=== PATIENT | female | born 1995 | race Caucasian/White ===

== ENCOUNTER 2020-10-08 05:06 | Emergency (ER) | payer OTHER, SELFPAY ==
[2020-10-08 05:26] VITALS: BP 122/86; PULSE 103; RESP 18; TEMP 36.9; O2SAT 95; BMI 37.5
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
[2020-10-08 05:54] VITALS: BP 122/86; PULSE 103; RESP 18; TEMP 36.9; O2SAT 95
[2020-10-08 06:56] LABS: Amphetamine Screen Urine Not Detected (Not Detect); Barbiturates, Urine Not Detected (Not Detect); Benzodiazepines Screen Urine POSITIVE (Not Detect); Cannabinoid Screen Urine POSITIVE (Not Detect); Cocaine Screen Urine POSITIVE (Not Detect); Opiate Screen Urine Not Detected (Not Detect); Phencyclidine Screen Urine POSITIVE (Not Detect)
--- NOTE | 2020-10-08 07:11 | PC.NURSE ---
Report received from IVA Barragan. Pt resting, resp unlabored.
[2020-10-08 08:00] VITALS: RESP 16
--- NOTE | 2020-10-08 08:31 | PC.NURSE ---
Pt resting, resp unlabored
[2020-10-08 10:00] VITALS: RESP 18
--- NOTE | 2020-10-08 10:09 | PC.NURSE ---
Pt awakened, notified of plan to discharge. Pt in agreement w/ discharge, stating that she never said she was suicidal and has been wanting to leave. Offered pt resources re: senior care but pt declined.
--- NOTE | 2020-10-08 10:39 | PC.NURSE ---
Pt awake, alert, given discharge instructions. Pt tearful, upset at staying in the ED, stated many times she was not suicidal, angry that she was kept here. Pt reports she has a hx suicidal thoughts, but states she is safe to be discharged today, denies SI. Pt plans to go to her 'kam's. today' Pt declining any other assistance offered at this time. CARE team in, arranged pt transport to her family's. Pt aware that she can come back at any point if needed.
--- NOTE | 2020-10-08 10:56 | MHC.CARE ---
CARE Team provided Pt with cab voucher for discharge.
== END 2020-10-08 10:53 | disposition home or self-care (01) ==
PROVIDERS: Emergency Provider Internal Medicine
DX: F31.9 Bipolar disorder, unspecified (principal); R45.851 Suicidal ideations; F43.10 Post-traumatic stress disorder, unspecified; F41.1 Generalized anxiety disorder; F43.0 Acute stress reaction; Z79.899 Other long term (current) drug therapy
CPT/HCPCS: 80307; 99284

== ENCOUNTER 2020-11-29 21:36 | Emergency (ER) | payer OTHER, SELFPAY | END 2020-11-29 23:08 | disposition left against medical advice (07) | PROVIDERS: Emergency Provider Emergency Medicine | DX: Z20.822 Contact with and (suspected) exposure to COVID-19 (principal) ==

== ENCOUNTER 2024-01-19 22:00 | Emergency (ER) | payer MEDICAID, SELFPAY ==
--- NOTE | ~2024-01-19 | US_ITS ---
EXAMINATION: US OBSTETRICAL ULTRASOUND CLINICAL INFORMATION: patient with pelvic pain. COMPARISON: None available. LMP: 11/27/2023. Gestational age by maternal dates is 7 weeks and 5 days Estimated date of delivery by maternal dates is 09/02/2024. TECHNIQUE: Transabdominal obstetrical ultrasound performed. FINDINGS: There is a single intrauterine gestational sac with visible yolk sac, embryo/fetus, and cardiac activity. There is no significant subchorionic hemorrhage or hematoma. HR: 156 beats per minute. CRL (crown rump length): 0.88 cm (7 weeks and 0 days +/- 4 days). JUVE (estimated date of delivery): 09/07/2024 +/- 4 days. MATERNAL ADNEXA: The right maternal ovary measures 2.6 x 1.5 x 2.3 cm. The left maternal ovary measures 3.6 x 2.1 x 2.8 cm. There is no significant maternal adnexal mass. No maternal pelvic ascites. US/US OB <= 14 weeks fetus IMPRESSION: 1. Single intrauterine gestation with ultrasound gestational age of 7 weeks and 0 days +/- 4 days. 2. Estimated date of delivery is 09/07/2024 +/- 4 days. 3. No maternal adnexal mass or pelvic ascites.
--- NOTE | ~2024-01-19 | US_ITS ---
EXAMINATION: US ABDOMEN LIMITED CLINICAL INFORMATION: Right upper quadrant pain.. COMPARISON: None available. TECHNIQUE: Real-time limited imaging of the right upper quadrant abdominal viscera. FINDINGS: PANCREAS: Not assessed. LIVER: The visualized liver is normal in appearance. GALLBLADDER: Normal. The gallbladder is physiologically distended without evidence of stones, sludge, polyps, wall thickening or pericholecystic fluid. COMMON BILE DUCT: Normal in caliber measuring 0.26 cm in diameter. RIGHT KIDNEY: Not assessed. FREE FLUID: None. US/US abdomen limited IMPRESSION: No evidence of acute cholecystitis.
[2024-01-19 22:10] VITALS: BP 129/84; PULSE 87; RESP 18; TEMP 36; O2SAT 100; BMI 36.6
--- NOTE | 2024-01-19 22:32 | MHC.EDTECH ---
Patient brought into triage area,labs,sars/flu/rsv,and urine obtained and sent t lab.
[2024-01-19 22:37] LABS: MANUAL DIFF FLAG NO
[2024-01-19 22:40] LABS: Basophils Percent Auto 0.5 % (0-2); Eosinophils Absolute Auto 0.3 X10*3/uL (0.0-0.4); Eosinophils Percent Auto 4.5 % (0-4); Hematocrit 35.7 % (37.0-47.0); Hemoglobin 11.9 g/dl (12.0-16.0); Imm Gran Abs Auto 0.02 X10*3/uL (0.00-0.03); Imm Gran Pct Auto 0.3 % (0.0-0.4); Lymphocytes Absolute Auto 1.7 X10*3/uL (1.2-4.9); Lymphocytes Percent Auto 29.4 % (20-40); Mean Corpuscular HGB Conc 33.3 g/dl (31.0-35.0); Mean Corpuscular Hemoglobin 28.8 pg (27.0-33.0); Mean Corpuscular Volume 86.4 fL (80.0-98.0); Mean Platelet Volume 11.7 fL (9.4-12.3); Monocytes Absolute Auto 0.5 X10*3/uL (0.1-1.2); Monocytes Percent Auto 7.8 % (2-11); Neutrophils Absolute Auto 3.3 x10*3/uL (2.0-8.3); Neutrophils Percent Auto 57.5 % (45-73); Platelet Count 175 X10*3/uL (160-400); Red Blood Count 4.13 X10*6/uL (4.20-5.50); Red Cell Distribution Width 13.8 % (11.0-16.0); UPreg QC Valid YES; Urine Pregnancy POSITIVE (NEGATIVE); White Blood Count 5.7 X10*3/uL (4.8-10.8)
[2024-01-19 22:40] LABS: Appearance Urine Clear; Color Urine Yellow; Glucose Urine UA Negative (Negative); Leukocyte Esterase Urine Small (1+) (Negative); Nitrite Urine Negative (Negative); PH 6.5 (5.0-9.0); Specific Gravity - Urine 1.025 (1.005-1.025); UMIC TRIGGER UACC YES; Urine Blood Negative (Negative); Urine Ketones Negative (Negative); Urine Protein Negative (Neg-Trace)
[2024-01-19 22:44] LABS: Bacteria Urine 1+ (None Seen); Hyaline Casts Urine 0-2 /LPF (0-2); RBC Urine 0-2 /HPF (0-2); UACC Culture Trigger YES
[2024-01-19 23:02] LABS: Alanine Aminotransferase 159 U/L (0-31); Albumin Level 4.1 g/dL (3.5-5.0); Alkaline Phosphatase 125 U/L (39-117); Anion Gap 12 (12-20); Aspartate Amino Transferase 192 U/L (5-31); Bilirubin Total 0.3 mg/dL (0.0-1.0); Blood Urea Nitrogen 7 mg/dL (9-16); Calcium 9.5 mg/dL (8.4-10.2); Carbon Dioxide 26 mmol/L (22-29); Chloride 103 mmol/L (96-108); Creatinine Clr Calc Pharmacy 156.6; Estimated Glomerular Filt Rate > 60; Glucose Random 81 mg/dL (60-115); Lipase 8 U/L (8-78); Potassium 3.9 mmol/L (3.3-5.1); Sodium 137 mmol/L (135-145)
[2024-01-19 23:18] LABS: Influenza A PCR NEGATIVE (Negative); Influenza B PCR NEGATIVE (Negative); Resp Syncy Virus RNA Qual PCR NEGATIVE (Negative); SARS COV2 PCR INHOUSE NEGATIVE (Negative)
--- NOTE | 2024-01-20 01:41 | ED_ITS ---
HPI - Abdominal Pain General Chief Complaint: Abdominal Pain Stated Complaint: Abdominal pain Time Seen by Provider: 01/20/24 01:39 Source: patient Mode of arrival: ambulatory Limitations: no limitations History of Present Illness HPI narrative: Patient is about 7 weeks complaining of pain in pelvic area for last 2 days also complaining of pain in right upper quadrant off and on for last few days got worse today does not have any history of gallstones or kidney stone patient's plan for MTP on 01/20 no vaginal bleed patient does have history ovarian cyst does have nausea and vomiting for last 2 months Related Data Previous Rx's ?Medication ?Instructions ?Recorded ondansetron 4 mg disintegrating 4 mg PO Q6-8H PRN nausea and 01/20/24 tablet vomiting #14 tabs Allergies Allergy/AdvReac Type Severity Reaction Status Date / Time hydrocodone [HYDROCODONE] Allergy Unknown TINGLING Verified 01/19/24 22:14 OF LIPS AND MOUTH ketorolac [From TORADOL] AdvReac Unknown HIVES Verified 01/19/24 22:14 Review of Systems Review of Systems Yes all other systems are reviewed and are negative [facility] Social History Social History Advance Directives: No Advance Directives Information Provided: No Physical Exam ED Vital Signs: Vital Signs - 24 hr 01/19/24 22:10 01/20/24 01:53 Temperature 96.8 F 97.8 F Pulse Rate 87 92 Respiratory Rate 18 16 Blood Pressure 129/84 124/83 Pulse Oximetry 100 100 Oxygen Delivery Method Room Air Room Air BMI result Body Mass Index 36.6 Appearance: Alert. Oriented X3. No acute distress. Eyes: PERRLA, No Nystagmus no icterus ENT: Pharynx normal. Oral Mucosa moist Neck: Normal inspection. Neck supple. CVS: Normal heart rate and rhythm. Pulses normal. Respiratory: No respiratory distress. Equal air entry bilateral, no wheezing/rales/rhonchi Abdomen: Soft and tender right upper quadrant and epigastric area Bowel sounds are present, no mass palpable, no CVA tenderness mild tenderness suprapubic area Skin: Skin warm and dry. Normal skin color. Normal skin turgor. Extremities: No lower extremity edema. No calf tenderness Neuro: Oriented X 3. Medical Decision Making Medical Decision Making MDM Narrative: Patient is 7 weeks with abdominal pain ultrasound negative for gallstones IUP in place 7 weeks no adnexal mass patient advised to follow with ObG labs are stable Differential Diagnosis Differential Diagnoses: The differential diagnosis associated with the presentation includes Acute cholecystitis/cholelithiasis/ectopic /ovarian cyst/UTI Lab Data MDM Lab Attestation statement: I reviewed the patient's lab results. 01/19/24 22:29 01/19/24 22:29 Labs: Lab Results 01/19/24 01/19/24 Range/Units 22:21 22:29 WBC 5.7 (4.8-10.8) X10*3/uL RBC 4.13 L (4.20-5.50) X10*6/uL Hgb 11.9 L (12.0-16.0) g/dl Hct 35.7 L (37.0-47.0) % MCV 86.4 (80.0-98.0) fL MCH 28.8 (27.0-33.0) pg MCHC 33.3 (31.0-35.0) g/dl RDW 13.8 (11.0-16.0) % Plt Count 175 (160-400) X10*3/uL MPV 11.7 (9.4-12.3) fL Immature Gran % (Auto) 0.3 (0.0-0.4) % Neut % (Auto) 57.5 (45-73) % Lymph % (Auto) 29.4 (20-40) % [place] % (Auto) 7.8 (2-11) % Eos % (Auto) 4.5 H (0-4) % Baso % (Auto) 0.5 (0-2) % Lymph # (Auto) 1.7 (1.2-4.9) X10*3/uL [place] # (Auto) 0.5 (0.1-1.2) X10*3/uL Eos # (Auto) 0.3 (0.0-0.4) X10*3/uL Baso # (Auto) 0.0 (0.0-0.2) X10*3/uL Abs Immat Gran (auto) 0.02 (0.00-0.03) X10*3/uL Absolute Neuts (auto) 3.3 (2.0-8.3) x10*3/uL Absolute Nucleated RBC 0.000 (0.0-0.012) X10*3/uL Nucleated RBC % (auto) 0.0 (0.0-0.2) /100WBC Sodium 137 (135-145) mmol/L Potassium 3.9 (3.3-5.1) mmol/L Chloride 103 (96-108) mmol/L Carbon Dioxide 26 (22-29) mmol/L Anion Gap 12 (12-20) BUN 7 L (9-16) mg/dL Creatinine 0.62 (0.5-1.4) mg/dL Estim Creat Clear Calc 156.6 Estimated GFR > 60 Random Glucose 81 (60-115) mg/dL Calcium 9.5 (8.4-10.2) mg/dL Total Bilirubin 0.3 (0.0-1.0) mg/dL AST 192 H (5-31) U/L ALT 159 H (0-31) U/L Alkaline Phosphatase 125 H (39-117) U/L Total Protein 7.0 (6.5-8.0) g/dL Albumin 4.1 (3.5-5.0) g/dL Lipase 8 (8-78) U/L Beta HCG, Quant 60230 mIU/mL Urine Color Yellow Urine Appearance Clear Urine pH 6.5 (5.0-9.0) Ur Specific [place] 1.025 (1.005-1.025) Urine Protein Negative (Neg-Trace) mg/dL Urine Glucose (UA) Negative (Negative) mg/dL Urine Ketones Negative (Negative) mg/dL Urine Blood Negative (Negative) Urine Nitrite Negative (Negative) Ur Leukocyte Esterase Small (1+) H (Negative) Urine RBC 0-2 (0-2) /HPF Urine WBC 6-10 H (0-5) /HPF Ur Squamous Epith Cells 6-10 (0-2) /HPF Urine Bacteria 1+ (None Seen) Hyaline Casts 0-2 (0-2) /LPF Urine Test POSITIVE H (NEGATIVE) Influenza Type A (PCR) NEGATIVE (Negative) Influenza Type B (PCR) NEGATIVE (Negative) RSV RNA Qual (PCR) NEGATIVE (Negative) SARS-CoV-2 RNA (RT-PCR) NEGATIVE (Negative) Independent Interpretation I performed an independent interpretation of an: Ultrasound Radiology Impression Discussion of test interpretation with radiology: I have reviewed the radiologist's reading. Radiologist Impression: [address] [address] Ultrasound Report Signed Patient: Kristen Gallo MR#: [id number] : 1995 Acct:[id number] Age/Sex: 28 / F ADM Date: 01/19/24 Loc: HO.ED Attending Dr: Ordering Physician: Tom Parham MD Date of Service: 01/20/24 Procedure(s): US OB <= 14 weeks fetus Accession Number(s): [id number] cc: Physician,None ; Tom Parham MD~ EXAMINATION: US OBSTETRICAL ULTRASOUND CLINICAL INFORMATION: patient with pelvic pain. COMPARISON: None available. LMP: 11/27/2023. Gestational age by maternal dates is 7 weeks and 5 days Estimated date of delivery by maternal dates is 09/02/2024. TECHNIQUE: Transabdominal obstetrical ultrasound performed. FINDINGS: There is a single intrauterine gestational sac with visible yolk sac, embryo/fetus, and cardiac activity. There is no significant subchorionic hemorrhage or hematoma. HR: 156 beats per minute. CRL (crown rump length): 0.88 cm (7 weeks and 0 days +/- 4 days). JUVE (estimated date of delivery): 09/07/2024 +/- 4 days. MATERNAL ADNEXA: The right maternal ovary measures 2.6 x 1.5 x 2.3 cm. The left maternal ovary measures 3.6 x 2.1 x 2.8 cm. There is no significant maternal adnexal mass. No maternal pelvic ascites. US/US OB <= 14 weeks fetus IMPRESSION: 1. Single intrauterine gestation with ultrasound gestational age of 7 weeks and 0 days +/- 4 days. 2. Estimated date of delivery is 09/07/2024 +/- 4 days. 3. No maternal adnexal mass or pelvic ascites. [address] [address] Ultrasound Report Signed Patient: Kristen Gallo MR#: [id number] : 1995 Acct:[id number] Age/Sex: 28 / F ADM Date: 01/19/24 Loc: HO.ED Attending Dr: Ordering Physician: Tom Parham MD Date of Service: 01/20/24 Procedure(s): US abdomen limited Accession Number(s): [id number] cc: Physician,None ; Tom Parham MD~ EXAMINATION: US ABDOMEN LIMITED CLINICAL INFORMATION: Right upper quadrant pain.. COMPARISON: None available. TECHNIQUE: Real-time limited imaging of the right upper quadrant abdominal viscera. FINDINGS: PANCREAS: Not assessed. LIVER: The visualized liver is normal in appearance. GALLBLADDER: Normal. The gallbladder is physiologically distended without evidence of stones, sludge, polyps, wall thickening or pericholecystic fluid. COMMON BILE DUCT: Normal in caliber measuring 0.26 cm in diameter. RIGHT KIDNEY: Not assessed. FREE FLUID: None. US/US abdomen limited IMPRESSION: No evidence of acute cholecystitis. Medications Administered Discontinued Medications Generic Name Dose Route Start Last Admin Trade Name Freq PRN Reason Stop Dose Admin Sodium Chloride 1,000 mls @ 999 mls/hr 01/20/24 01:50 01/20/24 03:37 Ns IV 01/20/24 02:50 999 mls/hr .Q1H1M ONE Administration Morphine Sulfate 4 mg 01/20/24 01:50 01/20/24 03:36 Morphine Sulfate 4 Mg/Ml Cartridge IVPUSH 01/20/24 01:51 4 mg ONCE ONE Administration Protocol Ondansetron HCl 4 mg 01/20/24 01:50 01/20/24 03:36 Ondansetron Hcl 4 Mg/2 Ml Vial IVPUSH 01/20/24 01:51 4 mg ONCE ONE Administration Discharge Plan Discharge Clinical Impression: Abdominal pain, Patient Disposition: Home, Self-Care Instructions: Abdominal Pain in (ED), at 7 to 10 Weeks (ED) Additional Instructions: Your ultrasound is negative for gallstones ultrasound showed 7 weeks Follow-up with your OBG Drink plenty of fluids Medicine for nausea as prescribed Prescriptions: New ondansetron 4 mg tablet,disintegrating 4 mg PO Q6-8H PRN (Reason: nausea and vomiting) Qty: 14 0RF Print Language: Northern Irish
[2024-01-20 01:53] VITALS: BP 124/83; PULSE 92; RESP 16; TEMP 36.6; O2SAT 100
[2024-01-20] MEDS: Morphine Sulfate 4 MG/ML CARTRIDGE IVPUSH (03:36)
[2024-01-20] MEDS: ondansetron HCL 4 MG/2 ML VIAL IVPUSH (03:36)
[2024-01-20] MEDS: 0.9 % Sodium Chloride 1,000 ML 999 ML IV (03:37)
[2024-01-20 04:52] VITALS: BP 121/71; PULSE 83; RESP 16; TEMP 36.1; O2SAT 100
[2024-01-20 05:17] VITALS: BP 121/71; PULSE 83; RESP 16; TEMP 36.1; O2SAT 100
== END 2024-01-20 05:20 | disposition home or self-care (01) ==
PROVIDERS: Emergency Provider Internal Medicine
DX: O26.91 Pregnancy related conditions, unspecified, first trimester (principal); R10.11 Right upper quadrant pain; R10.2 Pelvic and perineal pain; Z3A.01 Less than 8 weeks gestation of pregnancy; Z11.52 Encounter for screening for COVID-19; Z20.822 Contact with and (suspected) exposure to COVID-19; Z79.899 Other long term (current) drug therapy
CPT/HCPCS: 0241U; 76705; 76801; 80053; 81001; 81025; 83690; 84702; 85025; 87086; 96374; 96375; 99284; J2270; J2405

== ENCOUNTER 2024-06-21 21:04 | Emergency (ER) | payer MEDICAID, SELFPAY ==
--- NOTE | 2024-06-21 21:05 | ECG_ITS ---
Test Reason : weakness Blood Pressure : / mmHG Vent. Rate : 088 BPM Atrial Rate : 088 BPM P-R Int : 172 ms QRS Dur : 092 ms QT Int : 372 ms P-R-T Axes : 058 016 033 degrees QTc Int : 450 ms Sinus rhythm with sinus arrhythmia with occasional Premature ventricular complexes Otherwise normal ECG When compared with ECG of 24-JUN-2016 05:25, Premature ventricular complexes are now Present Referred By: Generic ED Physician Electronically Signed By:BRYANNA STINSON
[2024-06-21 21:09] VITALS: BP 126/85; PULSE 91; RESP 18; TEMP 36.5; O2SAT 97; BMI 38.3
[2024-06-21 21:59] VITALS: BP 129/82; PULSE 82; RESP 16; TEMP 36.6; O2SAT 100
[2024-06-21 22:20] LABS: Troponin-I High Sensitivity < 2.7 ng/L (<3.5-17.0)
[2024-06-21 22:22] LABS: B Type Natriuretic Peptide 25 pg/mL (<100)
[2024-06-21 22:36] LABS: Influenza A PCR NEGATIVE (Negative); Influenza B PCR NEGATIVE (Negative); Resp Syncy Virus RNA Qual PCR NEGATIVE (Negative); SARS COV2 PCR INHOUSE NEGATIVE (Negative)
--- NOTE | 2024-06-21 23:21 | ED.CHESTPAIN ---
HPI - Chest Pain General Chief Complaint: Chest Pain Stated Complaint: chest pain-legs/feet swollen Time Seen by Provider: 06/21/24 23:15 Source: patient Mode of arrival: ambulatory Limitations: no limitations History of Present Illness ED Provider: bart RODRIGUES narrative: Patient with history of anxiety complaining of bilateral leg swelling for several days especially in the evening time patient usually stands on her feet all the time during daytime and noticed increased swelling in the evening times no shortness a breath no liver problem Related Data Previous Rx's ?Medication ?Instructions ?Recorded ondansetron 4 mg disintegrating 4 mg PO Q6-8H PRN nausea and 01/20/24 tablet vomiting #14 tabs amoxicillin 875 mg-potassium 1 tab PO BID #20 tabs 06/22/24 clavulanate 125 mg tablet hydrochlorothiazide 50 mg tablet 50 mg PO QAM #30 tabs 06/22/24 prednisone 20 mg tablet 40 mg (2 x 20 mg) PO DAILY #10 tabs 06/22/24 Allergies Allergy/AdvReac Type Severity Reaction Status Date / Time hydrocodone [HYDROCODONE] Allergy Unknown TINGLING Verified 06/21/24 21:10 OF LIPS AND MOUTH ketorolac [From TORADOL] AdvReac Unknown HIVES Verified 06/21/24 21:10 Review of Systems Review of Systems: Yes all other systems are reviewed and are negative [facility] Social History Social History Smoked in Last 30 Days: No Use of substances other than those prescribed or required for medical reasons: No Advance Directives: No Advance Directives Information Provided: No Do you have a plan to hurt others: No Plan Patient : No Physical Exam Vital Signs: Vital Signs: Last Vital Signs Temp 97.9 F 06/22/24 01:25 Pulse 82 06/22/24 01:25 Resp 16 06/22/24 01:25 BP 129/82 06/22/24 01:25 Pulse Ox 100 06/22/24 01:25 O2 Del Method Room Air 06/22/24 01:25 BMI result Body Mass Index 38.3 Appearance: Alert. Oriented X3. No acute distress. Eyes: No pallor or icterus ENT: Pharynx normal. Oral Mucosa moist Neck: Normal inspection. Neck supple. CVS: Normal heart rate and rhythm. Pulses normal. Respiratory: No respiratory distress. Equal air entry bilateral, no wheezing/rales/rhonchi Abdomen: Soft and nontender. Bowel sounds are present, no mass palpable, no CVA tenderness Skin: Skin warm and dry. Normal skin color. Normal skin turgor. Extremities: 3+lower extremity edema. No calf tenderness Neuro: Oriented X 3. No motor deficit. No sensory deficit.No cerebellar signs , cranial nerves II-XII intact Medications Administered Discontinued Medications Generic Name Dose Route Start Last Admin Trade Name Man PRN Reason Stop Dose Admin Amoxicillin/Clavulanate Potassium 875 mg 06/22/24 01:11 06/22/24 01:21 Amoxicillin/Potassium Clav 875 Mg Tablet PO 06/22/24 01:12 875 mg ONCE ONE Administration Dexamethasone 10 mg 06/21/24 23:48 06/21/24 23:54 Dexamethasone 2 Mg Tablet PO 06/21/24 23:49 10 mg ONCE ONE Administration Medical Decision Making Medical Decision Making [facility] Narrative: Patient has dependent edema workup negative for CHF /hepatic/renal etiology will prescribe hydrochlorothiazide and advised to keep the leg elevated Differential Diagnosis Differential Diagnoses: The differential diagnosis associated with the presentation includes Dependent edema/CHF/DVT Lab Data [facility] Lab Attestation statement: I reviewed the patient's lab results. 06/22/24 00:52 06/21/24 21:53 Labs: Lab Results 06/21/24 06/22/24 Range/Units 21:53 00:52 WBC 7.1 (4.8-10.8) X10*3/uL RBC 3.76 L (4.20-5.50) X10*6/uL Hgb 10.4 L (12.0-16.0) g/dl Hct 31.3 L (37.0-47.0) % MCV 83.2 (80.0-98.0) fL MCH 27.7 (27.0-33.0) pg MCHC 33.2 (31.0-35.0) g/dl RDW 14.3 (11.0-16.0) % Plt Count 197 (160-400) X10*3/uL MPV 10.4 (9.4-12.3) fL Immature Gran % (Auto) 0.3 (0.0-0.4) % Neut % (Auto) 56.8 (45-73) % Lymph % (Auto) 25.0 (20-40) % [place] % (Auto) 7.6 (2-11) % Eos % (Auto) 9.7 H (0-4) % Baso % (Auto) 0.6 (0-2) % Lymph # (Auto) 1.8 (1.2-4.9) X10*3/uL [place] # (Auto) 0.5 (0.1-1.2) X10*3/uL Eos # (Auto) 0.7 H (0.0-0.4) X10*3/uL Baso # (Auto) 0.0 (0.0-0.2) X10*3/uL Abs Immat Gran (auto) 0.02 (0.00-0.03) X10*3/uL Absolute Neuts (auto) 4.1 (2.0-8.3) x10*3/uL Absolute Nucleated RBC 0.000 (0.0-0.012) X10*3/uL Nucleated RBC % (auto) 0.0 (0.0-0.2) /100WBC Sodium 137 (135-145) mmol/L Potassium 4.3 (3.3-5.1) mmol/L Chloride 102 (96-108) mmol/L Carbon Dioxide 26 (22-29) mmol/L Anion Gap 13 (12-20) BUN 14 (9-16) mg/dL Creatinine 0.73 (0.5-1.4) mg/dL Estim Creat Clear Calc 136.3 Estimated GFR > 60 Random Glucose 84 (60-115) mg/dL Calcium 9.5 (8.4-10.2) mg/dL Total Bilirubin 0.3 (0.0-1.0) mg/dL AST 24 (5-31) U/L ALT 40 H (0-31) U/L Alkaline Phosphatase 104 (39-117) U/L Troponin I High Sens < 2.7 (<3.5-17.0) ng/L B-Natriuretic Peptide 25 (<100) pg/mL Total Protein 6.7 (6.5-8.0) g/dL Albumin 4.1 (3.5-5.0) g/dL Influenza Type A (PCR) NEGATIVE (Negative) Influenza Type B (PCR) NEGATIVE (Negative) RSV RNA Qual (PCR) NEGATIVE (Negative) SARS-CoV-2 RNA (RT-PCR) NEGATIVE (Negative) Discharge Plan Discharge Clinical Impression: Acute rhinosinusitis, Leg edema Patient Disposition: Home, Self-Care Instructions: Rhinosinusitis (ED), Leg Edema (ED) Additional Instructions: Keep your leg elevated Water pill daily in morning for increased leg swelling Antibiotic as prescribed Prednisone as advised Prescriptions: New prednisone 20 mg tablet 40 mg PO DAILY Qty: 10 0RF amoxicillin-pot clavulanate 875-125 mg tablet 1 tab PO BID Qty: 20 0RF hydrochlorothiazide 50 mg tablet 50 mg PO QAM Qty: 30 0RF No Action ondansetron 4 mg tablet,disintegrating 4 mg PO Q6-8H PRN (Reason: nausea and vomiting) Qty: 14 0RF Referrals: Verona Reed MD [Physician] - 1 week Interventions: ED Discharge Assessment Last Done: 06/22/24 01:25 Discharge Date/Time: 06/22/24 01:25 Print Language: Belarusian
[2024-06-21] MEDS: dexAMETHasone 2 MG TABLET 10 MG PO (23:54)
[2024-06-22] LABS: Alanine Aminotransferase 40 U/L (0-31); Albumin Level 4.1 g/dL (3.5-5.0); Alkaline Phosphatase 104 U/L (39-117); Anion Gap 13 (12-20); Aspartate Amino Transferase 24 U/L (5-31); Bilirubin Total 0.3 mg/dL (0.0-1.0); Blood Urea Nitrogen 14 mg/dL (9-16); Calcium 9.5 mg/dL (8.4-10.2); Carbon Dioxide 26 mmol/L (22-29); Chloride 102 mmol/L (96-108); Creatinine Clr Calc Pharmacy 136.3; Estimated Glomerular Filt Rate > 60; Glucose Random 84 mg/dL (60-115); Potassium 4.3 mmol/L (3.3-5.1); Sodium 137 mmol/L (135-145); Total Protein 6.7 g/dL (6.5-8.0)
[2024-06-22 01:05] LABS: Basophils Percent Auto 0.6 % (0-2); Eosinophils Absolute Auto 0.7 X10*3/uL (0.0-0.4); Eosinophils Percent Auto 9.7 % (0-4); Hematocrit 31.3 % (37.0-47.0); Hemoglobin 10.4 g/dl (12.0-16.0); Imm Gran Abs Auto 0.02 X10*3/uL (0.00-0.03); Imm Gran Pct Auto 0.3 % (0.0-0.4); Lymphocytes Absolute Auto 1.8 X10*3/uL (1.2-4.9); Mean Corpuscular HGB Conc 33.2 g/dl (31.0-35.0); Mean Corpuscular Hemoglobin 27.7 pg (27.0-33.0); Mean Corpuscular Volume 83.2 fL (80.0-98.0); Mean Platelet Volume 10.4 fL (9.4-12.3); Monocytes Absolute Auto 0.5 X10*3/uL (0.1-1.2); Monocytes Percent Auto 7.6 % (2-11); Neutrophils Absolute Auto 4.1 x10*3/uL (2.0-8.3); Neutrophils Percent Auto 56.8 % (45-73); Platelet Count 197 X10*3/uL (160-400); Red Blood Count 3.76 X10*6/uL (4.20-5.50); Red Cell Distribution Width 14.3 % (11.0-16.0); White Blood Count 7.1 X10*3/uL (4.8-10.8)
[2024-06-22] MEDS: Amoxicillin/Potassium Clav 875 MG TABLET PO (01:21)
[2024-06-22 01:25] VITALS: BP 129/82; PULSE 82; RESP 16; TEMP 36.6; O2SAT 100
== END 2024-06-22 01:25 | disposition home or self-care (01) ==
PROVIDERS: Emergency Provider Internal Medicine
DX: J01.90 Acute sinusitis, unspecified (principal); R60.0 Localized edema; Z03.818 Encounter for observation for suspected exposure to other biological agents ruled out; R53.1 Weakness; I49.3 Ventricular premature depolarization; Z79.899 Other long term (current) drug therapy
CPT/HCPCS: 0241U; 36415; 80053; 83880; 84484; 85025; 93005; 99283; 99285; J8540

== ENCOUNTER 2024-07-04 03:59 | Emergency (ER) | payer MEDICAID, SELFPAY ==
--- NOTE | 2024-07-04 | ECG_ITS ---
Test Reason : CHEST PAIN Blood Pressure : / mmHG Vent. Rate : 099 BPM Atrial Rate : 099 BPM P-R Int : 154 ms QRS Dur : 090 ms QT Int : 348 ms P-R-T Axes : 065 045 052 degrees QTc Int : 446 ms Normal sinus rhythm Normal ECG When compared with ECG of 21-JUN-2024 21:05, Premature ventricular complexes are no longer Present Referred By: Generic ED Physician Electronically Signed By:BRYANNA STINSON
--- NOTE | ~2024-07-04 | XR_ITS ---
EXAMINATION: XR CHEST CLINICAL INFORMATION: Dyspnea. Cough. COMPARISON: June 21, 2020. TECHNIQUE: Frontal view of the chest was obtained. FINDINGS: No significant abnormality is noted involving the heart, lungs, mediastinum, bony thorax or soft tissues. XR/XR chest 1V IMPRESSION: Unremarkable examination. Electronically signed by: Basim Vega MD 07/04/2024 05:39 AM EDT
[2024-07-04 04:05] VITALS: BP 119/82; BP 146/86; PULSE 103; PULSE 108; RESP 12; TEMP 36.5; O2SAT 98; BMI 46.8
--- NOTE | 2024-07-04 04:29 | MHC.EDTECH ---
This Tech assumed care of this pt upon arrival. Pt changed over into a hospital gown and placed on a draw in hand. EKG done and handed to a provider. SARS collected and sent to the lab for processing. UTO labs *2 pt is a difficult stick IVA Hoff made aware
--- NOTE | 2024-07-04 04:52 | ED_ITS ---
HPI - General Adult General Chief complaint: General Medical Stated complaint: SOB/CHEST PRESSURE, POSSIBLE PNEUMONIA ? Time Seen by Provider: 07/04/24 04:52 Source: patient Mode of arrival: ambulatory Limitations: no limitations History of Present Illness ED Provider: bart RODRIGUES narrative: Patient obese with history of asthma was seen here on 06/21 for sinus infection bronchitis comes here as not feeling good feeling chest pain multiple complaints lungs are clear also have anxiety patient is seen here 06/21 prescribe Augmentin and prednisone complaining of vaginal discharge no fever complaining of increased shortness of breath multiple complaints Related Data Home Medications ?Medication ?Instructions ?Recorded ?Confirmed alprazolam 1 mg tablet 1 mg PO TID PRN Anxiety 07/04/24 07/04/24 dextroamphetamine-amphetamine 20 1 tab PO TID 07/04/24 07/04/24 mg tablet fluoxetine 20 mg capsule 40 mg PO QAM 07/04/24 07/04/24 Previous Rx's ?Medication ?Instructions ?Recorded hydrochlorothiazide 50 mg tablet 50 mg PO QAM #30 tabs 06/22/24 cefuroxime axetil 500 mg tablet 500 mg PO BID 7 days #14 tabs 07/04/24 fluconazole 150 mg tablet 150 mg PO DAILY 1 dose #1 tab 07/04/24 guaifenesin 600 mg tablet, 600 mg PO BID #20 tabs 07/04/24 extended release 12 hr prednisone 20 mg tablet 40 mg (2 x 20 mg) PO DAILY #10 tabs 07/04/24 Allergies Allergy/AdvReac Type Severity Reaction Status Date / Time hydrocodone [HYDROCODONE] Allergy Unknown TINGLING Verified 07/04/24 04:09 OF LIPS AND MOUTH ketorolac [From TORADOL] AdvReac Unknown HIVES Verified 07/04/24 04:09 Review of Systems Review of Systems: Yes all other systems are reviewed and are negative PMFSH Social History Social History Smoked in Last 30 Days: Yes Use of substances other than those prescribed or required for medical reasons: No Advance Directives: No Advance Directives Information Provided: No Do you have a plan to hurt others: No Plan Physical Exam ED Vital Signs: Vital Signs - 24 hr 07/04/24 04:05 07/04/24 06:27 07/04/24 06:33 Temperature 97.7 F 97.9 F 97.9 F Pulse Rate 103 H 106 H 106 H Respiratory Rate 12 19 19 Blood Pressure 119/82 126/81 126/61 Pulse Oximetry 98 100 100 Oxygen Delivery Method Room Air Room Air Room Air BMI result Body Mass Index 46.8 Appearance: Alert. Oriented X3. No acute distress. Eyes: No pallor or icterus ENT: Pharynx normal. Oral Mucosa moist Neck: Normal inspection. Neck supple. CVS: Normal heart rate and rhythm. Pulses normal. Respiratory: No respiratory distress. Equal air entry bilateral, no wheezing/rales/rhonchi Abdomen: Soft and nontender. Bowel sounds are present, no mass palpable, no CVA tenderness Skin: Skin warm and dry. Normal skin color. Normal skin turgor. Extremities: No lower extremity edema. No calf tenderness Neuro: Oriented X 3. No motor deficit. No sensory deficit.No cerebellar signs , cranial nerves II-XII intact Medications Administered Discontinued Medications Generic Name Dose Route Start Last Admin Trade Name Freq PRN Reason Stop Dose Admin Cefuroxime Axetil 500 mg 07/04/24 06:20 07/04/24 06:28 Cefuroxime Axetil 500 Mg Tablet PO 07/04/24 06:21 500 mg ONCE ONE Administration Dexamethasone 10 mg 07/04/24 06:20 07/04/24 06:28 Dexamethasone 2 Mg Tablet PO 07/04/24 06:21 10 mg ONCE ONE Administration Fluconazole 150 mg 07/04/24 04:57 07/04/24 05:07 Fluconazole 150 Mg Tablet PO 07/04/24 04:58 150 mg ONCE ONE Administration Medical Decision Making Medical Decision Making [facility] Narrative: Patient with chronic sinus infections will prescribe her prednisone and Ceftin advised to follow up with PCP as outpatient Lab Data [facility] Lab Attestation statement: I reviewed the patient's lab results. Labs: Lab Results 07/04/24 Range/Units 04:32 Influenza Type A (PCR) NEGATIVE (Negative) Influenza Type B (PCR) NEGATIVE (Negative) RSV RNA Qual (PCR) NEGATIVE (Negative) SARS-CoV-2 RNA (RT-PCR) NEGATIVE (Negative) Independent Interpretation I performed an independent interpretation of an: EKG Interpretation: Normal sinus rhythm heart rate 99 beats per normal interval normal axis no acute ST-T changes no acute ischemia Discharge Plan Discharge Clinical Impression: Acute rhinosinusitis Patient Disposition: Home, Self-Care Instructions: Rhinosinusitis (ED) Additional Instructions: Take antibiotic and prednisone as prescribed Use your Flonase nasal spray Diflucan 1 tablet if you have vaginal candidiasis Follow with PCP Prescriptions: New prednisone 20 mg tablet 40 mg PO DAILY Qty: 10 0RF cefuroxime axetil 500 mg tablet 500 mg PO BID 7 Days Qty: 14 0RF guaifenesin 600 mg tablet extended release 12hr 600 mg PO BID Qty: 20 0RF fluconazole 150 mg tablet 150 mg PO DAILY Qty: 1 0RF Rx Instructions: administer on day 1 of therapy No Action hydrochlorothiazide 50 mg tablet 50 mg PO QAM Qty: 30 0RF alprazolam 1 mg tablet 1 mg PO TID PRN (Reason: Anxiety) fluoxetine 20 mg capsule 40 mg PO QAM dextroamphetamine-amphetamine 20 mg tablet 1 tab PO TID Interventions: ED Discharge Assessment Last Done: 07/04/24 06:33 Discharge Date/Time: 07/04/24 06:34 Print Language: Estonian
[2024-07-04] MEDS: Fluconazole 150 MG TABLET PO (05:07)
--- NOTE | 2024-07-04 05:13 | PC.NURSE ---
pt is in room, crying, stating I am sick. I feel like something is stuck in my chest. I was getting better, but now I am sick . Multiple complaints about her health.
[2024-07-04 05:16] LABS: Influenza A PCR NEGATIVE (Negative); Influenza B PCR NEGATIVE (Negative); Resp Syncy Virus RNA Qual PCR NEGATIVE (Negative); SARS COV2 PCR INHOUSE NEGATIVE (Negative)
[2024-07-04 06:27] VITALS: BP 126/81; PULSE 106; RESP 19; TEMP 36.6; O2SAT 100
[2024-07-04] MEDS: cefuroxime axetiL 500 MG TABLET PO (06:28)
[2024-07-04] MEDS: dexAMETHasone 2 MG TABLET 10 MG PO (06:28)
[2024-07-04 06:33] VITALS: BP 126/61; PULSE 106; RESP 19; TEMP 36.6; O2SAT 100
== END 2024-07-04 06:34 | disposition home or self-care (01) ==
PROVIDERS: Emergency Provider Internal Medicine
DX: J01.90 Acute sinusitis, unspecified (principal); R06.02 Shortness of breath; R07.89 Other chest pain; Z03.818 Encounter for observation for suspected exposure to other biological agents ruled out; Z79.899 Other long term (current) drug therapy
CPT/HCPCS: 0241U; 71045; 93005; 99283; 99284; J8540

== ENCOUNTER 2025-08-19 16:01 | Outpatient (REF) | payer MEDICAID, SELFPAY ==
--- OUTSIDE RECORDS SUMMARY | 2025-08-19 14:00 | XMS_ITS | Encounter Summary ---
Author Organization [employer] Address [address] [place] [address] Care Team Providers Care Care Manager Cna Name Role Phone Gilbert Gallagher CNP Primary Care Provider [phone] Encounter Details Date Type Department Care Team (Late st Contact Info) Description 08/19/2025 2:00 PM EST Office Visit [facility]EDS [address] [place], [place] [phone] Elliott AndreaERIK chu [address] [place] [address] Encounter for physical examination (Primary Dx); Gastroesophageal reflux disease with esophagitis without hemorrhage Social History Tobacco Use Types Packs/Day Years Used Date Smoking Tobacco: Never Smokeless Tobacco: Never Tobacco Cessation:Counseling Given: Not Answered Depression Answer Date Recorded Patient Health Questionnaire-9 Score 15 08/19/2025 Patient Health Questionnaire-9 Score 15 08/19/2025 Last PHQ-9: Questionnaire Data Not on file 1 10/19/2024 Housing Stability Answer Date Recorded What is your housing situation today? I do not have housing (Staying with others, in a hotel, in a fpc, living outside on the street, on a beach, in a car, or in a park 08/19/[address] you li ve. Do you have problems with any of the following? Not on file 08/19/2025 Food Insecurity Answer Date Recorded Within the past 12 months, y ou worried that your food would run out before you got money to buy more: Sometimes True 2024 Within the past 12 months,th e food you bought just didn't last and you didn't have enough money to get more: Never True 08/19/2025 Transportation Answer Date Recorded In the past 12 months, has l ack of transportation kept you from medical appts, meetings, work or from getting things needed for daily living? Yes, it has kept me from medical appointments or getting medications. 08/19/2025 Utilities Answer Date Recorded In the past 12 months, has t he electric, gas, oil or water company threatened to shut off services in your home? No 08/19/2025 Depression Answer Date Recorded Patient Health Questionnaire-2 Score 6 08/19/2025 Internet Access Answer Date Recorded Internet Access Q1 Yes 08/19/2025 Internet Access Q2 Not on file 08/19/2025 Comments No Sex and Gender Information Value Date Recorded Sex Assigned at Female 07/04/2025 9:58 AM EDT Legal Sex Female 9:25 PM EDT Gender Identity Female 07/04/2025 9:58 AM EDT Sexual Orientation Straight 07/04/2025 9: 58 AM EDT documented as of this encounter Last Filed Vital Signs Vital Sign Reading Time Taken Comments Blood Pressure 128/80 08/19/2025 2:29 PM EST Pulse 94 08/19/2025 2:29 PM EST Temperature 36.9 C (98.5 F) 08/19/2025 2:29 PM EST Respiratory Rate 18 08/19/2025 2:29 PM EST Oxygen Saturation 98% 08/19/2025 2:29 PM EST Inhaled Oxygen Concentration - - Weight 140 kg (309 lb) 08/19/2025 2:29 PM EST Height 166.4 cm (5' 5.5 ) 08/19/2025 2:29 PM EST Body Mass Index 50.64 08/19/2025 2:29 PM EST documented in this encounter Functional Status * Over the past 2 weeks, how often have you been bothered by any of the following problems? Question Answer Date of Assessment Author Patient Health Questionnaire -2 Score 6 08/19/2025 4:04 PM EST Lee Yadav MA * Little interest or pleasure in doing things Answer Date of Assessment Author Nearly every day 08/19/2025 4:04 PM EST Rosaura Munguia MA * Feeling down, depressed, or hopeless Answer Date of Assessment Author Nearly every day 08/19/2025 4:04 PM EST Rosaura Munguia MA * Trouble falling or staying asleep, or sleeping too much Answer Date of Assessment Author More than half the days 08/19/2025 4:04 PM EST Rosaura Matthews MA * Feeling tired or having little energy Answer Date of Assessment Author More than half the days 08/19/2025 4:04 PM Rosaura Broussard MA * Poor appetite or overeating Answer Date of Assessment Author More than half the days 08/19/2025 4:04 PM Rosaura Broussard MA * Feeling bad about yourself - or that you are a failure or have let yourself or your family down Answer Date of Assessment Author Nearly every day 08/19/2025 4:04 PM EST SharathC Rosaura garrison MA * Trouble concentrating on things, such as reading the newspaper or watching television Answer Date of Assessment Author Not at all 08/19/2025 4:04 PM Rosaura Hodge MA * Moving or speaking so slowly that other people could have noticed? Or the opposite - being so fidgety or restless that you have been moving around a lot more than usual. Answer Date of Assessment Author Not at all 08/19/2025 4:04 PM EST [employer] Rosaura zuniga MA * Thoughts that you would be better off or hurting yourself in some way Answer Date of Assessment Author Not at all 08/19/2025 4:04 PM EST SharathCo Rosaura zuniga MA * Patient Health Questionnaire-9 Score Answer Date of Assessment Author 15 08/19/2025 4:04 PM JONELLE EarlyCo Rosaura zuniga MA * How difficult have these problems made it for you to do your work, take care of things at home, or get along with other people? Answer Date of Assessment Author Not difficult at all 08/19/2025 4:04 PM Rosaura Joe MA * Over the last 2 weeks, how often have you been bothered by any of the following problems? Question Answer Date of Assessment Author Feeling nervous, anxious, or on edge 2 08/19/2025 4:04 PM Lee Dupont MA Not being able to stop or control worrying 3 08/19/2025 4:04 PM Lee Dupont MA Worrying too much about different things 2 08/19/2025 4:04 PM EST SharathLee Banuelos MA Trouble relaxing 3 08/19/2025 4:04 PM EST D harperRosaura Marquez MA Being so restless that it is hard to sit still 3 08/19/2025 4:04 PM EST SharathLee Banuelos MA Becoming easily annoyed or irritable 2 08/19/2025 4:04 PM EST SharathLee Baneulos MA Feeling afraid as if somethi ng awful might happen 2 08/19/2025 4:04 PM EST SharathLee Banuelos MA BELLA-7 Total Score 17 08/19/2025 4:04 PM EST Rosaura Yadav MA documented as of this encounter Plan of Treatment Upcoming Encounters Date Type Department Care Team (Late st Contact Info) Description 09/17/2025 11:30 AM EST [facility] [address] [place] [address] MinnesotaGilbert, [employer] [address] [place] [address] Scheduled Orders Name Type Priority Associated Diagnoses Orde r Schedule Comprehensive Metabolic Panel Lab Routine Encounter for physical examination Expected: 08/19/2025 (Approximate), Expires: 08/18/2026 Lipid Panel, Standard Lab Routine Encounter for physical examination Expected: 08/19/2025 (Approximate), Expires: 08/18/2026 TSH W/Reflex to FT4 Lab Routine Encounter for physical examination Expected: 08/19/2025 (Approximate), Expires: 08/19/2026 LINK Screen,IFA, with Reflex to Titer and Pattern Lab Routine Encounter for physical examination Expected: 08/19/2025 (Approximate), Expires: 08/19/2026 Bacterial Vaginosis Panel Microbiology Routine Encounter for physical examination Ordered: 08/19/2025 documented as of this encounter Procedures Procedure Name Priority Date/Time Associated Diagnosis Comments CBC WITH AUTO DIFFERENTIAL Routine 08/19/2025 4:03 PM EST Encounter for physical examination RHEUMATOID FACTOR Routine 08/19/2025 4:0 3 PM EST Encounter for physical examination documented in this encounter Results * Rheumatoid Factor (08/19/2025 4:03 PM EST) Pathologist [facility] Rheumatoid Factor <13.0 <15.0 IU/mL [facility] Blood Venous blood specimen / Unknown 08/19/2025 4:03 PM EST 08/19/2025 6:09 PM EST [facility] LAB BLOOD ORDERABLES Perla l Result [facility] [address] [place], [place] [phone] * (ABNORMAL) CBC auto differential (08/19/2025 4:03 PM EST) Pathologist [facility] White Blood Count 5.6 4.8 - 10.8 X10*3/uL [facility] Red Blood Count 3.91(L) 4.20 - 5.50 X10*6/uL [facility] Hemoglobin 11.3(L) 12.0 - 16.0 g/dl [facility] Hematocrit 34.4(L) 37.0 - 47.0 % [facility] Mean Corpuscular Volume 88.0 80.0 - 98.0 fL [facility] Mean Corpuscular Hemoglobin 28.9 27.0 - 33.0 pg [facility] Mean Corpuscular HGB Conc 32.8 31.0 - 35.0 g/dl [facility] Red Cell Distribution Width 13.2 11.0 - 16.0 % [facility] Platelet Count 223 160 - 400 X10*3/uL [facility] Mean Platelet Volume 12.0 9.4 - 12.3 fL [facility] Neutrophils Percent Auto 56.7 45 - 73 % [facility] Imm Gran Pct Auto 0.2 0.0 - 0.4 % [facility] Lymphocytes Percent Auto 32.7 20 - 40 % [facility] Monocytes Percent Auto 7.5 2 - 11 % [facility] Eosinophils Percent Auto 2.5 0 - 4 % [facility] Basophils Percent Auto 0.4 0 - 2 % [facility] NRBC Pct Auto 0.0 0.0 - 0.2 /100WBC [facility] Neutrophils Absolute Auto 3.2 2.0 - 8.3 x10*3/uL [facility] Imm Gran Abs Auto 0.01 0.00 - 0.03 X10*3/uL [facility] Lymphocytes Absolute Auto 1.8 1.2 - 4.9 X10*3/uL [facility] Monocytes Absolute Auto 0.4 0.1 - 1.2 X10*3/uL [facility] Eosinophils Absolute Auto 0.1 0.0 - 0.4 X10*3/uL [facility] Basophils Absolute Auto 0.0 0.0 - 0.2 X10*3/uL [facility] NRBC Abs Auto 0.000 0.0 - 0.012 X10*3/uL [facility] Blood Venous blood specimen / Unknown 08/19/2025 4:03 PM EST 08/19/2025 6:09 PM EST Gilbert Gallagher CNP LAB BLOOD ORDERABLES Perla l Result [facility] [address] [place] [phone] documented in this encounter Visit Diagnoses Diagnosis Encounter for physical examination- Primary Gastroesophageal reflux disease with esophagitis without hemorrhage documented in this encounter Additional Health Concerns Assessment Noted Time PHQ-9 Depression Total Score: 15 025 4:04 PM EST documented as of this encounter Care Teams Care Manager Cna Relationship Specialty Start Date End Date Gilbert Gallagher CNP [address] [place] [id number] PCP - General Family Medicine 08/19/25 documented as of this encounter
[2025-08-19 18:12] LABS: MANUAL DIFF FLAG NO
[2025-08-19 18:42] LABS: Hematocrit 34.4 % (37.0-47.0); Hemoglobin 11.3 g/dl (12.0-16.0); Imm Gran Abs Auto 0.01 X10*3/uL (0.00-0.03); Imm Gran Pct Auto 0.2 % (0.0-0.4); Lymphocytes Absolute Auto 1.8 X10*3/uL (1.2-4.9); Mean Corpuscular HGB Conc 32.8 g/dl (31.0-35.0); Mean Corpuscular Hemoglobin 28.9 pg (27.0-33.0); Mean Corpuscular Volume 88.0 fL (80.0-98.0); NRBC Abs Auto 0.000 X10*3/uL (0.0-0.012); NRBC Pct Auto 0.0 /100WBC (0.0-0.2); Platelet Count 223 X10*3/uL (160-400); Red Blood Count 3.91 X10*6/uL (4.20-5.50); White Blood Count 5.6 X10*3/uL (4.8-10.8)
--- OUTSIDE RECORDS SUMMARY | 2025-08-19 18:48 | XMS_ITS | Encounter Summary ---
Author Organization [employer] Address [address] [place] [address] Care Team Providers Care Clubhouse Attendant Name Role Phone Gilbert Gallagher ERIK Primary Care Provider [phone] Encounter Details Date Type Department Care Team (Latest Contact Info) Description 08/19/2025 Travel Social History Tobacco Use Types Packs/Day Years Used Date Smoking Tobacco: Never Smokeless Tobacco: Never Depression Answer Date Recorded Patient Health Questionnaire-9 Score 15 08/19/2025 Patient Health Questionnaire-9 Score 15 08/19/2025 Last PHQ-9: Questionnaire Data Not on file 1 10/19/2024 Housing Stability Answer Date Recorded What is your housing situation today? I do not have housing (Staying with others, in a hotel, in a mcc, living outside on the street, on a [...] AM EDT documented as of this encounter Functional Status * Over the past 2 weeks, how often have you been bothered by any of the following problems? Question Answer Date of Assessment Author Patient Health Questionnaire -2 Score 6 08/19/2025 4:04 PM Lee Dupont MA * Little interest or pleasure in doing things Answer Date of Assessment Author Nearly every day 08/19/2025 4:04 PM Rosaura Adams MA * Feeling down, depressed, or hopeless Answer Date of Assessment Author Nearly every day 08/19/2025 4:04 PM Rosaura Adams MA * Trouble falling or staying asleep, or sleeping too much Answer Date of Assessment Author More than half the days 08/19/2025 4:04 PM Rosaura Broussard MA * Feeling tired or having little [...] Author Nearly every day 08/19/2025 4:04 PM Rosaura Adams MA * Trouble concentrating on things, such [...] Not at all 08/19/2025 4:04 PM EST [employer] Rosaura zuniga MA * Thoughts that you would be better off or hurting yourself in some way Answer Date of Assessment Author Not at all 08/19/2025 4:04 PM EST [employer] Rosaura zuniga MA * Patient Health Questionnaire-9 Score Answer Date of Assessment Author 15 08/19/2025 4:04 PM EST [employer] Rosaura zuniga MA * How difficult have these problems made it for you to do your work, take care of things at home, or get along with other people? Answer Date of Assessment Author Not difficult at all 08/19/2025 4:04 PM EST Conrad laRosaura Marquez MA * Over the last 2 weeks, how often have you been bothered by any of the following problems? Question Answer Date of Assessment Author Feeling nervous, anxious, or on edge 2 08/19/2025 4:04 PM EST Lee Yadav MA Not being able to stop or control worrying 3 08/19/2025 4:04 PM EST Lee Yadav MA Worrying too much about different things 2 08/19/2025 4:04 PM EST Lee Yadav MA Trouble relaxing 3 08/19/2025 4:04 PM EST Rosaura Matthews MA Being so restless that it is hard to sit still 3 08/19/2025 4:04 PM Lee Dupont MA Becoming easily annoyed or irritable 2 08/19/2025 4:04 PM EST Lee Yadav MA Feeling afraid as if somethi ng awful might happen 2 08/19/2025 4:04 PM EST Lee Yadav MA BELLA-7 Total Score 17 08/19/2025 4:04 PM Rosaura Dupont MA documented as of this encounter Plan of Treatment Upcoming Encounters Date Type Department Care Team (Late st Contact Info) Description 09/17/2025 11:30 AM EST Procedure Visit [facility] PEDS [address] [place] [address] Gilbert Gallagher, [employer] [address] [place] [address] documented as of this encounter Visit Diagnoses Not on filedocumented in this encounter Additional Health Concerns Assessment Noted Time PHQ-9 Depression Total Score: 15 025 4:04 PM EST documented as of this encounter Care Teams Clubhouse Attendant Relationship Specialty Start Date End Date Gilbert Gallagher CNP [address] [facility] [place] [address] PCP - General Family Medicine 08/19/25 documented as of this encounter
--- OUTSIDE RECORDS SUMMARY | 2025-08-19 18:48 | XMS_ITS | Clinical Summary ---
Author Organization [facility] it Address [address] [place] [address] Care Team Providers Care Brass Reclaimer Name Role Phone Manisha Stoddard MD Primary Care Provider Surgical History Surgery Date Site/Laterality Comments OTHER SURGICAL HISTORY PROCEDURE: DENIES PREVIOUS SURGERY Medical History Medical History Date Comments Anxiety DX:Anxiety Family History Medical History Relation Name Comments Diabetes Mother Diabetes Paternal Grandmother Relation Name Status Comments Father Alive Mother Alive Paternal Grandmother Sister 1 Alive 1/2 Sister 2 Alive 1/2 Sister 3 Alive 1/2 Sister 4 Alive 1/2 Sister 5 Alive 1/2 Sister 6 Alive 1/2 Social History Tobacco Use Types Packs/Day Years Used Date Smoking Tobacco: Every Day Cigarettes Smokeless Tobacco: Never Alcohol Use Standard Drinks/Week Comments Yes 0 (1 standard drink = 0.6 oz pur e alcohol) Comments Unknown Sex and Gender Information Value Date Recorded Sex Assigned at Not on file Legal Sex Female 4:29 AM EST Gender Identity Not on file Sexual Orientation Not on file Obstetrics History Plan of Treatment Health Maintenance Due Date Last Done Comments DTaP,Tdap,and Td Vaccines (1 - Tdap) 2013 Hepatitis B Vaccines (1 of 3 - 19+ 3-dose series) 2013 Cervical Cancer Screening: P ap Smear 2015 HPV Vaccines (1 - 3-dose SCD M series) 2021 Depression Screening 10/15/2024 COVID-19 Vaccine ( - 2023-2 5 season) 2025 Influenza Vaccine (#1) 2025 RSV Immunization Adult Patie nts (1 - 1-dose 75+ series) 2069 HIB Vaccines Aged Out No longer eligi ble based on patient's age to complete this topic Hepatitis A Vaccines Aged Out No long er eligible based on patient's age to complete this topic IPV Vaccines Aged Out No longer eligi ble based on patient's age to complete this topic MMR Vaccines Aged Out No longer eligi ble based on patient's age to complete this topic Meningococcal ACWY Vaccine Aged Out N o longer eligible based on patient's age to complete this topic Meningococcal B Vaccine Aged Out No l onger eligible based on patient's age to complete this topic Pneumococcal Vaccine: Pediat rics (0 to 5 Years) and At-Risk Patients (6 to 49 Years) Aged Out No longer eligible b ased on patient's age to complete this topic RSV Immunization Patients Un clemencia 20 months Aged Out No longer eligible b ased on patient's age to complete this topic Varicella Vaccines Aged Out No longer eligible based on patient's age to complete this topic Care Teams Brass Reclaimer Relationship Specialty Start Date End Date Manisha Stoddard MD [address] [place] [phone] PCP - General 06/09/17
--- OUTSIDE RECORDS SUMMARY | 2025-08-19 18:48 | XMS_ITS | Encounter Summary ---
Author Organization [employer] Address [address] [place] [address] Care Team Providers Care Security System Analyst Name Role Phone Gilbert Gallagher CNP Primary Care Provider [phone] Reason for Visit * Reason Comments Care Coordination CHW outreach for SDO H housing search-referral completed Encounter Details Date Type Department Care Team (Latest Contact Info) Description 08/19/2025 Patient Outreach [facility] MED[facility]INE [address] [place] [address] Gilbert Gallagher CNP [address] [place], [place] [phone] Care Coordination (CHW outreach for SDOH housing search-referral completed ) Social History Tobacco Use Types Packs/Day Years [...] with others, in a hotel, in a group home, living outside on the street, on a [...] Not at all 08/19/2025 4:04 PM Rosaura Adams MA * Moving or speaking so slowly that other people could have noticed? Or the opposite - being so fidgety or restless that you have been moving around a lot more than usual. Answer Date of Assessment Author Not at all 08/19/2025 4:04 PM Rosaura Hodge MA * Thoughts that you would be better off or hurting yourself in some way Answer Date of Assessment Author Not at all 08/19/2025 4:04 PM Rosaura Hodge MA * Patient Health Questionnaire-9 Score Answer Date of Assessment Author 15 08/19/2025 4:04 PM Rosaura Hodge MA * How difficult have these problems [...] about different things 2 08/19/2025 4:04 PM Lee Dupont MA Trouble relaxing 3 08/19/2025 4:04 PM Rosaura Broussard MA Being so restless that it is hard to sit still 3 08/19/2025 4:04 PM Lee Dupont MA Becoming easily annoyed or irritable 2 08/19/2025 4:04 PM Lee Dupont MA Feeling afraid as if somethi ng awful might happen 2 08/19/2025 4:04 PM Lee Dupont MA BELLA-7 Total Score 17 08/19/2025 4:04 PM EST Rosaura Yadav MA documented as of this encounter Progress Notes * Alfonso Abernathy - 08/19/2025 4:07 PM EST CHW Alfonso Abernathy, placed outbound call to patient for assistance with SDOH as a referral was received by the provider. Patient's name and were confirmed. Patient screened positive for the following SDOH housing insecurities. Patient states is staying with her friend but is searching for her own apartment. CHW referral patient to the list of application mail out to her address on file. Patient verbalizes understanding, and able to agree with plan to follow up herself. Patient educated on extended clinic hours on Mondays through Wednesdays, and Walk-In Urgent Care Located in [facility]. Patient provided with after-hours line for [facility], , which offer night time triage service and option to transfer to paper conservator provider if needed. documented in this encounter Plan of Treatment Upcoming Encounters Date Type Department Care Team (Late st Contact Info) Description 09/17/2025 11:30 AM EST Procedure Visit [facility] & PEDS [address] [place] [address] Gilbert Gallagher CNP [address] [place] [address] documented as of this encounter Visit Diagnoses Not on filedocumented in this encounter Additional Health Concerns Assessment Noted Time PHQ-9 Depression Total Score: 15 025 4:04 PM EST documented as of this encounter Care Teams Security System Analyst Relationship Specialty Start Date End Date Gilbert Gallagher CNP [address] [place] [address] PCP - General Family Medicine 08/19/25 documented as of this encounter
--- OUTSIDE RECORDS SUMMARY | 2025-08-19 18:48 | XMS_ITS | Encounter Summary ---
Author Organization [employer] [facility] Address [address] [place] [address] [address] [place] [address] Care Team Providers Care Formulation Technician Name Role Phone Unavailable Primary Care Provider Unavailabl e Reason for Visit * Reason Onset Date Comments chart prep 08/17/2025 Encounter Details Date Type Department Care Team (Late st Contact Info) Description 08/17/2025 Telephone [facility] MED & PEDS [address] [place] [address] Rosaura Yadav MA chart prep Social History Tobacco Use Types Packs/Day Years Used Date Smoking Tobacco: Never Assessed Comments Unknown Sex and Gender Information Value Date Recorded Sex Assigned at Female 07/04/2025 9:58 AM EDT Legal Sex Female 9:25 PM EDT Gender Identity Female 07/04/2025 9:58 AM EDT Sexual Orientation Straight 07/04/2025 9: 58 AM EDT documented as of this encounter Miscellaneous Notes * Telephone Encounter - Rosaura Yadav MA - 08/17/2025 9:59 AM EST Chart Prep Labs: not applicable Images: not applicable Referrals: not applicable Vaccines due: Covid, Flu, and Hep B Screenings: pap smear Overdue care gaps: SBIRT, SDOH, PHQ-9, BELLA-7, Oral health screening, Disability screen, and Tobacco documented in this encounter Plan of Treatment Upcoming Encounters Date Type Department Care Team (Late st Contact Info) Description 09/17/2025 11:30 AM EST Procedure Visit [facility] MED & PEDS [address] [place] [address] Gilbert Gallagher, [employer] [address] [place] [address] documented as of this encounter Visit Diagnoses Not on filedocumented in this encounter
--- OUTSIDE RECORDS SUMMARY | 2025-08-19 18:48 | XMS_ITS | Clinical Summary ---
Author Organization [employer] Address [address] [place] [address] [address]t [place] [address] Care Team Providers Care Emergency Management System Director Name Role Phone Gilbert Gallagher PERSONAL LOAN SPECIALIST Primary Care Provider [phone] Allergies Active Allergy Reactions Criticality Noted Date Comments Ketorolac Tromethamine 06/12/2025 Other Reaction(s): Pruritus of skin Wound Dressing Adhesive 06/12/2025 Medications acetaminophen (Tylenol) 325 MG tablet Take 975 mg by mouth. 2 Active albuterol (ProAir HFA) 108 (90 Base) MCG/ACT inhaler See Instructions, TAKE 2 PUFFS EVERY 4 HOURS NEEDED FOR WHEEZING OR SHORT OF BREATH, # 8.5 each, Refills 0, Instructions Replace Required Details, Route to Pharmacy Electronically, [id number], [id number], 165, cm, 12/29/21 21:50:00 EDT, Height, 145.5, kg, 12/29/21 21:50:00 EDT, Dry Weight 2 Active ALPRAZolam (Xanax) 1 MG tablet TAKE 1 TABLET BY MOUTH UP TO 3 TIMES A DAY NEEDED. Active FLUoxetine (PROzac) 20 MG capsule TAKE 2 CAPSULES BY MOUTH EVERY DAY IN THE MORNING 5 Active amphetamine-dex troamphetamine (Adderall) 20 MG tablet Take 1 tablet by mouth 3 times daily. Active ibuprofen 800 MG tablet Take 800 mg by mouth if needed in the morning, at noon, and at bedtime. Active FLUoxetine (PROzac) 10 MG capsule Take 1 capsule by mouth. 4 Active famotidine (Pepcid) 40 MG tabletIndicatio ns:Gastroesopha geal reflux disease with esophagitis without hemorrhage Take 1 tablet (40 mg) by mouth 2 times daily. 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 [address] [place] [phone] Gilbert Gallagher CNP Care Coordination (CHW outreach for [facility] housing search-referral completed ) 08/19/2025 Travel 08/17/2025 Telephone [facility] [address] [place] [address] Rosaura Yadav MA chart prep 08/11/[address] [facility] [address] [place] [phone] Jason Goodwin MD Pre-visit Planning (Pre visit planning LVM ) 07/07/[address] [facility] [address] [place] [phone] Gilbert Gallagher CNP No Show 07/07/2025 Telephone [facility] P[facility] [address] [place] [address] Rosaura Yadav MA chat prep 06/30/[address] [facility] [address] [place] [address] Jason Goodwin MD Pre-visit Planning (Pre visit planning LVM ) 06/17/2025 Telephone [facility] P[facility] [address] [place] [address] Rosaura Yadav MA chart prep 06/12/2025 Telephone [facility] [address] [place] [address] Rosaura Yadav MA chart prep from Last 3 Months Immunizations Immunization Administration Dates Next Due HPV, Quadrivalent 12/06/2015,08/18/2015,05/25/20 15 Influenza, IIV3, injectable 07/10/2017 Tdap 07/11/2022,07/24/2017,03/29/2015 Family History Medical History Relation Name Comments Ovarian cancer Maternal Grandmother Relation Name Status Comments Maternal Grandmother Social History Tobacco Use Types Packs/Day Years [...] with others, in a hotel, in a care home, living outside on the street, on [...] Orientation Straight 07/04/2025 9: 58 AM EDT Last Filed Vital Signs Vital Sign Reading [...] Mass Index 50.64 08/19/2025 2:29 PM EST Plan of Treatment Upcoming Encounters Date Type Department Care Team (Late st Contact Info) Description 09/17/2025 11:30 AM EST Procedure Visit [facility] PED[facility] [address] [place] [address] Gilbert Gallagher, PERSONAL LOAN SPECIALIST [address] [place], [place] [phone] Health Maintenance Due Date Last Done Comments HIV Screening 1994 Lipid Panel 1994 SDOH Screening 1994 Family Planning (PISQ) 2009 Hepatitis C Screening 2012 Hepatitis B Vaccines (1 of 3 - 19+ 3-dose series) 2013 Pap Smear 2015 Cervical Cancer Screening 2024 HPV/Cotest 2024 COVID-19 Vaccine (1 - 2023-2 5 season) 2025 Influenza Vaccine (#1) 2025 07/10/2017 Depression Monitoring 02/16/2026 08/19/2025 , 08/19/2025 Alcohol/Substance Use Screening 08/19/2026 08/19/2025 Disability Screening 08/19/2026 08/19/2025 Tobacco Screening 08/19/2026 08/19/2025 DTaP/Tdap/Td Vaccines (4 - T d or Tdap) 07/11/2032 07/11/2022, 07/24/2017, 03/29/2015 Zoster Vaccines (1 of 2) 2044 RSV Patients and Patients Aged 60 years or older (1 - 1-dose 75+ series) 2069 HPV Vaccines Completed 12/06/2015, 08/18/2015, 05/25/2015 HIB Vaccines Aged Out No longer eligi [...] patient's age to complete this topic Meningococcal Vaccine Aged Out No nadia renetta eligible based on patient's age to complete this topic Pneumococcal Vaccine: Pediatrics (0 to 5 Years) and At-Risk Patients (6 to 49) Years Aged Out No longer eligible b ased on patient's age to complete this topic RSV under 20 months Aged Out No longe r eligible based on patient's age to complete this topic Rotavirus Vaccines Aged Out No longer eligible based on patient's age to complete this topic Procedures Procedure Name Priority Date/Time Associated Diagnosis Comments RHEUMATOID FACTOR Routine 08/19/2025 4:0 3 PM EST Encounter for physical examination CBC WITH AUTO DIFFERENTIAL Routine 08/19/2025 4:03 PM EST Encounter for physical examination from Last 3 Months Results * (ABNORMAL) CBC auto differential (08/19/2025 4:03 PM EST) White Blood Count 5.6 4.8 - 10.8 [...] 4:03 PM EST 08/19/2025 6:09 PM EST [facility] LAB BLOOD ORDERABLES Perla l Result Performing Organization Address [facility] Co de Phone Number [facility] [address] [place] [address] [phone] * Rheumatoid Factor (08/19/2025 4:03 PM EST) Rheumatoid Factor <13.0 <15.0 IU/mL [facility] Blood Venous blood specimen / Unknown 08/19/2025 4:03 PM EST 08/19/2025 6:09 PM EST [facility] LAB BLOOD ORDERABLES Perla l Result Performing Organization Address [facility] Co de Phone Number [facility] [address] [place] [phone] from Last 3 Months Insurance [facility] C3 Care Teams Emergency Management System Director Relationship Specialty Start Date End Date Gilbert Gallagher CNP [address] [place] [phone] PCP - General Family Medicine 08/19/25
[2025-08-19 18:56] LABS: Alanine Aminotransferase 22 U/L (0-31); Albumin Level 4.3 g/dL (3.5-5.0); Alkaline Phosphatase 76 U/L (39-117); Anion Gap 11 (12-20); Aspartate Amino Transferase 23 U/L (5-31); Blood Urea Nitrogen 9 mg/dL (9-16); Calcium 9.4 mg/dL (8.4-10.2); Carbon Dioxide 27 mmol/L (22-29); Chloride 106 mmol/L (96-108); Cholesterol 147 mg/dL (<200); Estimated Glomerular Filt Rate > 60; HDL Cholesterol 48 mg/dL (>40); Potassium 4.0 mmol/L (3.3-5.1); Sodium 140 mmol/L (135-145); Total Protein 6.7 g/dL (6.5-8.0); Triglycerides 170 mg/dL (<150)
[2025-08-20 02:07] LABS: Bacterial Vaginosis PCR NEGATIVE (Negative); Candida Group PCR NOT DETECTED (Not Detect); Candida glab krusei PCR DETECTED (Not Detect); Trichomonas vaginalis PCR NOT DETECTED (Not Detect)
[2025-08-26 15:54] LABS: Anti Nuclear Antibody Screen NEGATIVE (NEGATIVE)
== END 2025-08-19 16:02 | disposition home or self-care (01) ==
LOC: HO.CHCLDS 16:01
DX: Z01.84 Encounter for antibody response examination (principal); Z20.2 Contact with and (suspected) exposure to infections with a predominantly sexual mode of transmission
CPT/HCPCS: 36415; 80053; 80061; 81515; 84443; 85025; 86038; 86431